=== PATIENT | female | born 1945 | race Caucasian/White ===

== ENCOUNTER → 2023-11-24 10:21 | Outpatient (REF) | payer OTHER, SELFPAY | LOC: HWRAD 10:21 | PROVIDERS: ATTENDING PHYSICIAN Family Medicine | DX: F17.210 Nicotine dependence, cigarettes, uncomplicated (principal); J84.89 Other specified interstitial pulmonary diseases | CPT/HCPCS: 71271 ==

== ENCOUNTER → 2024-01-16 09:04 | Outpatient (REF) | payer OTHER, SELFPAY | LOC: PAVMRI 09:04 | PROVIDERS: ATTENDING PHYSICIAN Physician Assistant Surgical; FAMILY PHYSICIAN Family Medicine | DX: M25.512 Pain in left shoulder (principal) | CPT/HCPCS: 73221 ==

== ENCOUNTER → 2024-01-22 08:39 | Outpatient (REF) | payer OTHER, SELFPAY | LOC: HWWDC 08:39 | PROVIDERS: ATTENDING PHYSICIAN Internal Medicine Hematology & Oncology; FAMILY PHYSICIAN Family Medicine | DX: Z12.31 Encounter for screening mammogram for malignant neoplasm of breast (principal) | CPT/HCPCS: 77063; 77067 ==

== ENCOUNTER → 2024-02-09 11:01 | Outpatient (REF) | payer OTHER, SELFPAY | LOC: RCS 11:01 | PROVIDERS: ATTENDING PHYSICIAN Specialist | DX: Z01.818 Encounter for other preprocedural examination (principal) | CPT/HCPCS: 93005 ==

== ENCOUNTER → 2024-05-31 08:06 | Outpatient (REF) | payer OTHER, SELFPAY | LOC: HWRAD 08:06 | PROVIDERS: ATTENDING PHYSICIAN Family Medicine | DX: F17.210 Nicotine dependence, cigarettes, uncomplicated (principal); R93.89 Abnormal findings on diagnostic imaging of other specified body structures; J43.2 Centrilobular emphysema; R91.8 Other nonspecific abnormal finding of lung field | CPT/HCPCS: 71250 ==

== ENCOUNTER → 2024-06-14 09:17 | Outpatient (REF) | payer OTHER, SELFPAY | LOC: PET 09:17 | PROVIDERS: ATTENDING PHYSICIAN Internal Medicine Hematology & Oncology | DX: R91.1 Solitary pulmonary nodule (principal); C50.911 Malignant neoplasm of unspecified site of right female breast | CPT/HCPCS: 78815; A9552 ==

== ENCOUNTER → 2024-08-31 06:43 | Outpatient (REF) | payer OTHER, SELFPAY | LOC: PAVMRI 06:43 | PROVIDERS: ATTENDING PHYSICIAN Specialist; PRIMARYCARE PHYSICIAN Family Medicine | DX: Z96.612 Presence of left artificial shoulder joint (principal) | CPT/HCPCS: 73221 ==

== ENCOUNTER → 2025-01-22 08:46 | Outpatient (REF) | payer OTHER, SELFPAY | LOC: HWWDC 08:46 | PROVIDERS: ATTENDING PHYSICIAN Internal Medicine Hematology & Oncology; FAMILY PHYSICIAN Family Medicine | DX: Z12.31 Encounter for screening mammogram for malignant neoplasm of breast (principal) | CPT/HCPCS: 77063; 77067 ==

== ENCOUNTER → 2025-03-30 06:26 | Outpatient (REF) | payer OTHER, SELFPAY | LOC: PAVMRI 06:26 | PROVIDERS: ATTENDING PHYSICIAN Physician Assistant Surgical; FAMILY PHYSICIAN Family Medicine | DX: M25.562 Pain in left knee (principal) | CPT/HCPCS: 73721 ==